=== PATIENT | male | born 1995 | race American Indian/Alaskan Native ===

== ENCOUNTER 2017-05-05 00:59 | Emergency (ER) | payer MEDICAID ==
[2017-05-05] MEDS ORDERED: predniSONE 20 MG Tab PO ONE (01:26)
[2017-05-05] MEDS ORDERED: Benzonatate 100 MG Cap PO ONE (01:26)
--- NOTE | 2017-05-05 01:33 | EDM.PDOC ---
ED HPI GENERAL MEDICAL PROBLEM - General Chief Complaint: Asthma Stated Complaint: [facility] Time Seen by Provider: 05/05/17 01:15 Source of Information: Reports: Patient, RN History Limitations: Reports: No Limitations - History of Present Illness INITIAL COMMENTS - FREE TEXT/NARRATIVE: 21 yo male with a pHx of asthma is transported from [place] for a severe coughing spell that began after he had gone to bed for the night. It was presumed to be asthma and he had none of his meds with him there. EMS did not note wheezing en route, but a frequent dry cough. Cough non-productive. Had a fever last week, but not since. Onset: Today Onset Date: 05/05/17 Onset Time: 00:00 Duration: Minutes: Location: Reports: Chest Quality: Reports: Other (no pain) Severity: Moderate Improves with: Reports: Other (slight benefit from nebulizer tx's) Worsens with: Reports: Other (deep breathing) Context: Reports: Other (Hx of asthma, flu-like illness last week.) Associated Symptoms: Reports: Cough, Shortness of Breath. Denies: Fever/Chills Treatments [employer] ANALYST: Reports: Breathing Treatments, IV/IO headache Pain Score (Numeric/FACES): 4 - Related Data Allergies Allergy/AdvReac Type Severity Reaction Status Date / Time No Known Allergies Allergy Verified 05/05/17 01:04 Home Meds: Home Meds NK [No Known Home Meds] 05/05/17 [History] Past Medical History Respiratory History: Reports: Asthma Musculoskeletal History: Reports: Fracture Psychiatric History: Reports: Addiction - Past Surgical History Musculoskeletal Surgical History: Reports: ORIF, Other (See Below) Other Musculoskeletal Surgeries/Procedures:: right leg Social & Family History - Tobacco Use Smoking Status *Q: Current Every Day Smoker Years of Tobacco use: 2 Packs/Tins Daily: 1 - Caffeine Use Caffeine Use: Reports: None - Alcohol Use Days Per Week of Alcohol Use: 5 Number of Drinks Per Day: 15 Total Drinks Per Week: 75 - Recreational Drug Use Recreational Drug Use: Yes Recreational Drug Type: Reports: Methamphetamine ED ROS GENERAL - Review of Systems Review Of Systems: See Below Constitutional: Reports: No Symptoms HEENT: Reports: No Symptoms Respiratory: Reports: Cough. Denies: Wheezing, Pleuritic Chest Pain, Sputum, Hemoptysis Cardiovascular: Reports: No Symptoms GI/Abdominal: Reports: No Symptoms : Reports: No Symptoms Musculoskeletal: Reports: No Symptoms Skin: Reports: No Symptoms Neurological: Reports: No Symptoms Psychiatric: Reports: No Symptoms ED EXAM, GENERAL - Physical Exam Exam: See Below Exam Limited By: No Limitations General Appearance: Alert, WD/WN, No Apparent Distress Eye Exam: Bilateral Eye: Normal Inspection Ears: Normal External Exam, Normal Canal, Hearing Grossly Normal, Normal TMs Ear Exam: Bilateral Ear: Auricle Normal, Canal Normal, TM normal Nose: Normal Inspection, Normal Mucosa, No Blood Throat/Mouth: Normal Inspection, Normal Lips, Normal Oropharynx, Normal Voice, No Airway Compromise Head: Atraumatic, Normocephalic Neck: Normal Inspection, Supple, Non-Tender Respiratory/Chest: No Respiratory Distress, Lungs Clear, Normal Breath Sounds, Other (frequent dry cough) Cardiovascular: Regular Rate, Rhythm, No Edema Extremities: Normal Inspection, Normal Range of Motion, Non-Tender, No Pedal Edema Neurological: Alert, Oriented, CN II-XII Intact, Normal Cognition, No Motor/ Sensory Deficits Psychiatric: Normal Affect, Normal Mood Skin Exam: Warm, Dry, Intact, Normal Color, No Rash Lymphatic: No Adenopathy Course - Vital Signs Text/Narrative:: Prednisone 20 mg po, Tessalon 200 mg po Peak flow-610 Last Recorded V/S: Last Vital Signs Temp 36.4 C 05/05/17 01:01 Pulse 109 H 05/05/17 01:01 Resp 20 05/05/17 01:01 BP 124/77 05/05/17 01:01 Pulse Ox 99 05/05/17 01:01 - Orders/Labs/Meds Orders: Active Orders 24 hr Category Date Time Status RT Peak Flow Measurement [RC] ASDIRECTED Care 05/05/17 01:36 Ordered Meds: Medications Discontinued Medications Generic Name Dose Route Start Last Admin Trade Name Freq PRN Reason Stop Dose Admin Benzonatate 200 mg 05/05/17 01:26 05/05/17 01:34 Tessalon Perles PO 05/05/17 01:27 200 mg ONETIME ONE Administration Prednisone 20 mg 05/05/17 01:26 05/05/17 01:34 Prednisone PO 05/05/17 01:27 20 mg ONETIME ONE Administration Departure - Departure Time of Disposition: 01:40 Disposition: Home, Self-Care 01 Condition: Good Clinical Impression: Cough - Discharge Information Referrals: PCP,None [Primary Care Provider] - Forms: ED Department Discharge - My Orders Last 24 Hours: My Active Orders 05/05/17 01:36 RT Peak Flow Measurement [RC] ASDIRECTED - Assessment/Plan Last 24 Hours: My Active Orders 05/05/17 01:36 RT Peak Flow Measurement [RC] ASDIRECTED
== END 2017-05-05 02:14 | disposition home or self-care (01) ==
LOC: JP.ED 00:59
DX: R05 Cough (principal); J45.909 Unspecified asthma, uncomplicated; F17.210 Nicotine dependence, cigarettes, uncomplicated
CPT/HCPCS: 99284; A9270; 99283